=== PATIENT | male | born 1970 | race Caucasian/White ===

== ENCOUNTER 2020-06-10 11:16 | Outpatient (CLI) | payer OTHER, SELFPAY ==
[2020-06-10 11:48] LABS: Estimated Glomerular Filt Rate > 60
== END 2020-06-10 11:17 | disposition home or self-care (01) ==
PROVIDERS: PCP Family Medicine; Visit Provider Urology
DX: C64.1 Malignant neoplasm of right kidney, except renal pelvis (principal); Z53.9 Procedure and treatment not carried out, unspecified reason
CPT/HCPCS: 99199

== ENCOUNTER 2020-06-10 12:47 | Outpatient (CLI) | payer OTHER, SELFPAY ==
--- NOTE | ~2020-06-10 | XR_ITS ---
XR chest 2V DATE: 06/10/2020 11:41 INDICATION: Malignant neoplasm of right kidney TECHNIQUE: PA and lateral views COMPARISON: 06/15/2019 PA and lateral chest FINDINGS: Normal heart size. No hilar or mediastinal enlargement. No pulmonary infiltrate or consolid ation, pleural effusion or pulmonary vascular congestion or pneumothorax. IMPRESSION: No active cardiopulmonary disease Reviewed, dictated and finalized at location A. NG SPONGER
--- NOTE | ~2020-06-10 | CT_ITS ---
EXAMINATION: CT abdomen wo/w con DATE: 06/10/2020 11:53 INDICATION: Right kidney cancer TECHNIQUE: Computed tomography (CT) of the abdomen was performed without intravenous contrast. CT of the abdomen was then performed with a total of 100 mL Omnipaque 350 intravenous contrast. The dose-le ngth product (DLP) was 2161.82 mGy-cm. Automated exposure control and iterative reconstruction techni que were employed. COMPARISON: 06/15/2019 FINDINGS: Minimal dependent atelectasis is present in the lung bases. The heart size is normal. The l iver is diffusely low in attenuation when compared with the spleen, consistent with hepatic steatosis . There are stable hemangiomas in the right hepatic lobe. Punctate calcifications in an otherwise nor mal spleen likely represent healed granulomatous disease. The pancreas, gallbladder, and adrenal glan ds are normal. The left kidney is unremarkable. There are changes of partial right nephrectomy withou t evidence of recurrent or residual mass. There are no pathologically enlarged abdominal lymph nodes. There is no free intraperitoneal gas or evidence of bowel obstruction. The appendix is normal. There is severe lumbar spondylosis. IMPRESSION: 1. Stable changes of right partial nephrectomy without evidence of residual or recurrent neoplasm. Reviewed, dictated and finalized at location A. ARY SPECIAL EDUCATION TEACHER
== END 2020-06-10 12:48 ==
LOC: ANHIMG 07-24 15:18
PROVIDERS: PCP Family Medicine; Visit Provider Urology
DX: C64.1 Malignant neoplasm of right kidney, except renal pelvis (principal)
CPT/HCPCS: 71046; 74170; Q9967

== ENCOUNTER → 2021-06-02 12:34 | Outpatient (CLI) | payer OTHER, SELFPAY ==
--- NOTE | ~2021-06-02 | CT_ITS ---
EXAMINATION: CT abdomen wo/w con DATE: 06/02/2021 13:35 INDICATION: Right renal malignant neoplasm TECHNIQUE: Computed tomography (CT) of the abdomen was performed without and subsequently with 130 cc Omnipaque 350 intravenous contrast. Automated exposure control and iterative reconstruction techniqu e were employed. Exam dose: 1622.57 mGy-cm total exam DLP. COMPARISON: 06/10/2020 CT abdomen 06/15/2019 CT abdomen pelvis FINDINGS: There is minimal dependent atelectasis in the right lower lobe. The lower lung zones are ot herwise clear. Normal heart size. No pericardial or pleural effusion. Diffuse hepatic steatosis. No hepatic space-occupying mass lesion. The gallbladder is unremarkable. N o bile duct dilatation. No pancreatic mass lesion, calcification or ductal dilatation. Normal splenic size. Normal morphology of the adrenal glands. Status post partial right nephrectomy. No recurrent or new renal mass lesion is noted. Stable very sm all left renal cysts. No urinary tract calculus or hydroureteronephrosis. There is atherosclerotic calcification of the abdominal aorta and iliac arteries but no aneurysm. No intraperitoneal or retroperitoneal mass lesion or adenopathy or ascites. Very small sliding hiatal hernia. Normal appendix. Diverticulosis of left colon; no CT evidence of diverticulitis. No bowel obstruction , bowel wall thickening, pneumatosis or intraperitoneal free air. There is severe degenerative disc disease and minimal retrolisthesis at L4-5. No suspicious osteolyti c or osteoblastic lesions are noted. IMPRESSION: Status post right partial nephrectomy for renal cell carcinoma; no recurrent or new heron l mass lesion is noted Normal appendix Diverticulosis of left colon Hepatic steatosis Very small sliding hiatal hernia No significant change since 06/10/2020 Reviewed, dictated and finalized at Location A. Reviewed, dictated and finalized at location B. E STRANDER IMPRESSION: Status post right partial nephrectomy for renal cell carcinoma; no recurrent or new renal mass lesion is noted Normal appendix Diverticulosis of left colon Hepatic steatosis Very small sliding hiatal hernia No significant change since 06/10/2020
--- NOTE | ~2021-06-02 | XR_ITS ---
EXAMINATION: XR chest 2V 06/02/2021 13:41 INDICATION: Malignant neoplasm of the right kidney PROCEDURE: 2 view chest COMPARISON: Comparison to multiple prior studies sequentially, with oldest reviewed study dated 07/2017. FINDINGS: The lungs are clear. The cardiomediastinal silhouette is within normal limits. There are no pleural effusions. There is no pneumothorax suspected. IMPRESSION: 1: NO ACUTE CARDIOPULMONARY DISEASE. Reviewed, dictated and finalized at location A. SPECIALIST
[2021-06-02 13:19] LABS: Estimated Glomerular Filt Rate > 60
== END ==
PROVIDERS: Visit Provider Urology
DX: C64.1 Malignant neoplasm of right kidney, except renal pelvis (principal); K57.30 Diverticulosis of large intestine without perforation or abscess without bleeding; K76.0 Fatty (change of) liver, not elsewhere classified; K44.9 Diaphragmatic hernia without obstruction or gangrene
CPT/HCPCS: 71046; 74170; Q9967

== ENCOUNTER → 2022-05-19 15:36 | Outpatient (CLI) | payer OTHER, SELFPAY ==
--- NOTE | ~2022-05-19 | CT_ITS ---
EXAMINATION: CT abdomen wo/w con DATE: 05/19/2022 16:03 INDICATION: Follow-up of malignant neoplasm of right kidney TECHNIQUE: Computed tomography (CT) of the abdomen was performed without and subsequently with 100 CC Omnipaque 350 intravenous contrast. Automated exposure control and iterative reconstruction techniqu e were employed. Exam dose: 1702.94 mGy-cm total exam DLP. COMPARISON: 06/02/2021 CT abdomen FINDINGS: The lung bases are clear. Normal heart size. No pericardial or pleural effusion. Cannot exclude cholelithiasis. No gallbladder wall thickening or pericholecystic fluid or fat strandi ng. No bile duct or pancreatic duct dilatation. There is hepatic steatosis. No hepatic, splenic, pancreatic, and adrenal space-occupying mass lesion is evident. No urinary tract calculus or hydroureteronephrosis. Status post right partial nephrectomy. Occasional very small left renal probable cysts. Normal appendix. Diverticulosis of the colon; no CT evidence of diverticulitis. No bowel obstruction or intraperitoneal free air. There is atherosclerotic calcification but normal caliber of the abdominal aorta. No intraperitoneal or retroperitoneal mass lesion or adenopathy or ascites. Moderate degenerative disc disease at L3-4 and severe degenerative disc disease at L4-5. No suspiciou s osteolytic or osteoblastic lesions are noted. IMPRESSION: Status post right partial nephrectomy; no significant change since 06/02/2021 Reviewed, dictated and finalized at Location A. Reviewed, dictated and finalized at location B. GING OPERATOR
[2022-05-19 15:55] LABS: Estimated Glomerular Filt Rate > 60
== END ==
PROVIDERS: PCP Family Medicine; Visit Provider Urology
DX: C64.1 Malignant neoplasm of right kidney, except renal pelvis (principal)
CPT/HCPCS: 74170; Q9967

== ENCOUNTER → 2022-06-07 09:29 | Outpatient (CLI) | payer OTHER, SELFPAY ==
--- NOTE | ~2022-06-07 | XR_ITS ---
Clinical Indication: Renal carcinoma PA and lateral views of the chest: Comparison: 06/02/2021 Findings: The lungs are clear, without evidence of focal consolidation or pleural effusion. Cardiome diastinal silhouette is within normal limits. Bones and soft tissues are unremarkable. Impression: Normal chest. Reviewed, dictated and finalized at location . AIRSPACE OFFICER Impression: Normal chest.
== END ==
PROVIDERS: PCP Family Medicine; Visit Provider Urology
DX: C64.1 Malignant neoplasm of right kidney, except renal pelvis (principal)
CPT/HCPCS: 71046

== ENCOUNTER → 2023-06-02 08:10 | Outpatient (CLI) | payer OTHER, SELFPAY ==
--- NOTE | ~2023-06-02 | XR_ITS ---
Clinical Indication: Renal cell carcinoma PA and lateral views of the chest: Comparison: 06/07/2022 Findings: The lungs are clear, without evidence of focal consolidation or pleural effusion. Cardiome diastinal silhouette is within normal limits. Bones and soft tissues are unremarkable. Impression: Normal chest. Reviewed, dictated and finalized at [facility]. FITTER Impression: Normal chest.
--- NOTE | ~2023-06-02 | CT_ITS ---
CT of the Abdomen: Indication: Right renal neoplasm Technique: 2.5 mm axial scans were obtained through the abdomen prior to and following intravenous a dministration of 100 cc of Omnipaque 350. Dose reduction technique was used on this scan by utilizing automated exposure control and iterative reconstruction technique. The dose-length product (DLP) was 1579.79 mGy-cm. COMPARISON: 05/19/2022 Findings: Scans through the lung bases are unremarkable. Probable small hemangioma in the posterior right hepatic lobe. The spleen, pancreas, gallbladder, adr enals and left kidney are within normal limits. Stable presumed postoperative change at the anterior aspect of the right kidney with coarse dystrophic ossification present. No suspicious/enhancing mass identified. There are atherosclerotic calcifications of the aorta. No lymphadenopathy. Visualized bowel loops are unremarkable. No ascites. Impression: Stable presumed postoperative change of the right kidney. No evidence for recurrent malignancy or met astatic disease in the abdomen. Probable small hemangioma in the right hepatic lobe. Reviewed, dictated and finalized at location . RNATIONAL LOGISTICS MANAGER Impression: Stable presumed postoperative change of the right kidney. No evidence for recur rent malignancy or metastatic disease in the abdomen. Probable small hemangioma in the right hepatic lobe.
[2023-06-02 08:32] LABS: Estimated Glomerular Filt Rate > 60
== END ==
PROVIDERS: PCP Family Medicine; Visit Provider Urology
DX: C64.1 Malignant neoplasm of right kidney, except renal pelvis (principal); Z98.890 Other specified postprocedural states; D18.09 Hemangioma of other sites
CPT/HCPCS: 71046; 74170; Q9967

== ENCOUNTER 2024-06-10 14:32 | Outpatient (CLI) | payer OTHER, SELFPAY ==
--- NOTE | ~2024-06-10 | CT_ITS ---
CT of the Abdomen and Pelvis: Indication: Renal malignancy Technique: 2.5 mm axial scans were obtained through the abdomen and pelvis prior to and following in travenous administration of 100 cc of Omnipaque 350. Dose reduction technique was used on this scan b y utilizing automated exposure control and iterative reconstruction technique. The dose-length produc t (DLP) was 1710.53 mGy-cm. COMPARISON: 06/02/2023 Findings: Scans through the lung bases are unremarkable. Stable ill-defined hypodense lesion in the posterior right hepatic lobe, seen on postcontrast images. The spleen, pancreas, gallbladder, adrenals and left kidney are within normal limits. Stable postope rative change at the anterior margin of the right kidney. There are atherosclerotic calcifications of the aorta. No lymphadenopathy. No bowel obstruction or bowel wall thickening. There is no evidence to suggest acute appendicitis. Images through the pelvis were performed. Urinary bladder unremarkable. No pelvic mass seen. No ascit es. Impression: Stable postoperative change of the right kidney. No evidence for active malignancy or metastatic dise ase. Stable ill-defined hypodense lesion in the posterior right hepatic lobe. Precise etiology is unclear, however stability suggests benignity. Reviewed, dictated and finalized at location . OR WEALTH ADVISOR Impression: Stable postoperative change of the right kidney. No evidence for active maligna ncy or metastatic disease. Stable ill-defined hypodense lesion in the posterior right hepatic lobe. Precis e etiology is unclear, however stability suggests benignity.
--- NOTE | ~2024-06-10 | XR_ITS ---
CHEST RADIOGRAPH, PA AND LATERAL CLINICAL HISTORY: Malignant neoplasm of R kidney,except renal pelvis . COMPARISON: 06/02/2023 TECHNIQUE: PA and lateral views of the chest. FINDINGS The cardiomediastinal silhouette is unremarkable. The lungs are clear. Visualized osseous structures and soft tissues are unremarkable. IMPRESSION: No focal infiltrate or effusion. Reviewed, dictated and finalized at location A. DISTRIBUTOR
[2024-06-10 14:58] LABS: Estimated Glomerular Filt Rate > 60
== END 2024-06-10 14:33 | disposition home or self-care (01) ==
LOC: MICIMG 14:33
PROVIDERS: PCP Family Medicine; Visit Provider Urology
DX: C64.1 Malignant neoplasm of right kidney, except renal pelvis (principal)
CPT/HCPCS: 71046; 74178; Q9967

== ENCOUNTER 2025-06-06 08:56 | Outpatient (CLI) | payer BC, SELFPAY ==
--- NOTE | ~2025-06-06 | XR_ITS ---
EXAMINATION: XR chest 2V 06/06/2025 09:17 INDICATION: Malignant neoplasm of the right kidney PROCEDURE: 2 view chest COMPARISON: No prior studies for comparison. FINDINGS: The lungs are clear. The cardiomediastinal silhouette is within normal limits. There are no pleural effusions. There is no pneumothorax suspected. IMPRESSION: 1: NO ACUTE CARDIOPULMONARY DISEASE. Reviewed, dictated and finalized at location O. ELLANT CHARGE ZONE ASSEMBLER
--- NOTE | ~2025-06-06 | CT_ITS ---
EXAMINATION: CT abdomen pelvis wo/w con DATE: 06/06/2025 09:36 INDICATION: Malignant neoplasm of right kidney. TECHNIQUE: Computed tomography (CT) of the abdomen and pelvis was performed without and with 100 mL Omnipaque 350 intravenous contrast. Automated exposure control and iterative reconstruction technique were employed. The dose-length product was 1396.69 mGy-cm. COMPARISON: CT abdomen and pelvis 06/10/2024, 11/11/17 FINDINGS: The visualized portions of the lung bases demonstrate calcified left lung nodules and calcified left hilar and mediastinal lymph nodes, consistent with old granulomatous disease. No pleural effusion. The heart size is normal. There are coronary artery calcifications. No pericardial effusion. There are multiple hypodense masses in right hepatic lobe measuring up to 2.0 cm, stable from 06/10/2024, likely benign. The gallbladder, spleen, pancreas, and adrenal glands are normal. There are cysts in the kidneys measuring up to 12 mm on the right. There are changes of partial right nephrectomy. There are 11 mm and 2 mm stones in right kidney. There is diverticulosis of the colon without evidence of diverticulitis. The appendix is normal. There are no dilated loops of bowel. There are no pathologically enlarged lymph nodes. There is no free intraperitoneal fluid. There is severe lumbar spondylosis and moderate thoracic spondylosis. IMPRESSION: 1. Partial right nephrectomy. No evidence of malignancy. Reviewed, dictated and finalized at location E. STITCH SLEEVE MAKER
[2025-06-06 09:26] LABS: Estimated Glomerular Filt Rate > 60
== END 2025-06-06 08:57 | disposition home or self-care (01) ==
LOC: ANHIMG 08:59
PROVIDERS: PCP Family Medicine; Visit Provider Urology
DX: C64.1 Malignant neoplasm of right kidney, except renal pelvis (principal); Z90.5 Acquired absence of kidney
CPT/HCPCS: 71046; 74178; Q9967